=== PATIENT | male | born 1955 | race Caucasian/White ===

== ENCOUNTER → 2018-01-17 07:52 | Outpatient (CLI) | payer BC, SELFPAY ==
[2018-01-17 10:18] LABS: AST(SGOT) 14 U/L (15-37); Alanine Aminotransfer ALT/SGPT 27 U/L (16-61); Albumin, Serum 3.7 g/dL (3.2-5.0); Alkaline Phosphatase 65 U/L (45-117); Cholesterol 203 mg/dL (200); Globulin 3.8 g/dL (2.2-4.2); High Density Lipoprotein 46 mg/dL; Protein, Total 7.5 g/dL (6.4-8.2); Triglycerides 171 mg/dL; Very Low Density Lipoprotein 34 mg/dL (5-40)
== END ==
PROVIDERS: Visit Provider Physician Assistant Medical
DX: E78.5 Hyperlipidemia, unspecified (principal); Z79.899 Other long term (current) drug therapy
CPT/HCPCS: 36415; 80061; 80076

== ENCOUNTER → 2018-08-17 12:59 | Outpatient (CLI) | payer BC, SELFPAY ==
[2018-08-17 13:44] LABS: AST(SGOT) 15 U/L (15-37); Alanine Aminotransfer ALT/SGPT 26 U/L (16-61); Albumin, Serum 3.6 g/dL (3.2-5.0); Alkaline Phosphatase 52 U/L (45-117); Anion Gap 9 (5-15); BUN 15 mg/dL (7-18); BUN/Creat Ratio 14.7 RATIO (10-20); Bilirubin, Direct 0.11 mg/dL (0.00-0.30); Calcium,Total 8.6 mg/dL (8.5-10.1); Chloride 107 mmol/L (98-107); Cholesterol 186 mg/dL (200); Creatinine, Serum 1.02 mg/dL (0.70-1.30); EST Glomerular Filtration Rate 78 mL/min (>60); Est Glom Filt Rate - Afr Amer 94 mL/min (>60); Globulin 3.3 g/dL (2.2-4.2); Glucose 91 mg/dL (74-106); High Density Lipoprotein 48 mg/dL; Potassium 3.5 mmol/L (3.5-5.1); Protein, Total 6.9 g/dL (6.4-8.2); Sodium Level 143 mmol/L (136-145); Triglycerides 192 mg/dL; Very Low Density Lipoprotein 38 mg/dL (5-40)
== END ==
PROVIDERS: Referring Provider Internal Medicine Cardiovascular Disease; Visit Provider Internal Medicine Cardiovascular Disease
DX: I25.10 Atherosclerotic heart disease of native coronary artery without angina pectoris (principal); E78.5 Hyperlipidemia, unspecified; I10 Essential (primary) hypertension; Z95.1 Presence of aortocoronary bypass graft
CPT/HCPCS: 36415; 80048; 80061; 80076

== ENCOUNTER → 2018-11-12 16:28 | Outpatient (CLI) | payer BC, SELFPAY ==
[2018-08-28 15:52] VITALS: BMI 29.5
[2018-11-12 17:38] LABS: PSA,Total - Annual Screen 2.28 ng/mL (0.00-4.00)
== END ==
PROVIDERS: Referring Provider Nurse Practitioner Adult Health; Visit Provider Nurse Practitioner Adult Health
DX: Z12.5 Encounter for screening for malignant neoplasm of prostate (principal)
CPT/HCPCS: 36415; 84153; G0103

== ENCOUNTER → 2019-05-01 07:02 | Outpatient (CLI) | payer BC, SELFPAY ==
[2018-08-28 15:52] VITALS: BMI 29.5
[2019-05-01 10:39] LABS: AST(SGOT) 12 U/L (15-37); Alanine Aminotransfer ALT/SGPT 25 U/L (16-61); Albumin, Serum 3.6 g/dL (3.2-5.0); Alkaline Phosphatase 67 U/L (45-117); Bilirubin, Direct 0.11 mg/dL (0.00-0.30); Cholesterol 181 mg/dL (200); Globulin 3.6 g/dL (2.2-4.2); High Density Lipoprotein 48 mg/dL; Protein, Total 7.2 g/dL (6.4-8.2); Triglycerides 158 mg/dL; Very Low Density Lipoprotein 32 mg/dL (5-40)
== END ==
PROVIDERS: Referring Provider Internal Medicine Cardiovascular Disease; Visit Provider Internal Medicine Cardiovascular Disease
DX: E78.5 Hyperlipidemia, unspecified (principal)
CPT/HCPCS: 36415; 80061; 80076

== ENCOUNTER → 2020-04-09 09:18 | Outpatient (CLI) | payer BC, SELFPAY ==
[2019-05-20 15:29] VITALS: BMI 29.5
[2020-04-09 13:17] LABS: AST(SGOT) 14 U/L (15-37); Alanine Aminotransfer ALT/SGPT 25 U/L (16-61); Albumin, Serum 3.5 g/dL (3.2-5.0); Alkaline Phosphatase 58 U/L (45-117); Bilirubin, Direct 0.09 mg/dL (0.00-0.30); Cholesterol 198 mg/dL (200); Globulin 3.1 g/dL (2.2-4.2); High Density Lipoprotein 40 mg/dL; PSA,Total - Annual Screen 1.48 ng/mL (0.00-4.00); Protein, Total 6.6 g/dL (6.4-8.2); Triglycerides 276 mg/dL; Very Low Density Lipoprotein 55 mg/dL (5-40)
== END ==
PROVIDERS: Internal Medicine Cardiovascular Disease; Referring Provider Nurse Practitioner Adult Health; Visit Provider Nurse Practitioner Adult Health
DX: E78.5 Hyperlipidemia, unspecified (principal); Z12.5 Encounter for screening for malignant neoplasm of prostate
CPT/HCPCS: 36415; 80061; 80076; 84153; G0103

== ENCOUNTER → 2020-07-17 08:56 | Outpatient (CLI) | payer BC, SELFPAY ==
[2020-05-25 09:10] VITALS: BMI 29.5
[2020-07-17 12:44] LABS: AST(SGOT) 13 U/L (15-37); Alanine Aminotransfer ALT/SGPT 22 U/L (16-61); Albumin, Serum 3.8 g/dL (3.2-5.0); Alkaline Phosphatase 65 U/L (45-117); Bilirubin, Direct 0.17 mg/dL (0.00-0.30); Cholesterol 211 mg/dL (200); Globulin 3.9 g/dL (2.2-4.2); High Density Lipoprotein 49 mg/dL; Protein, Total 7.7 g/dL (6.4-8.2); Triglycerides 188 mg/dL; Very Low Density Lipoprotein 38 mg/dL (5-40)
== END ==
PROVIDERS: Referring Provider Internal Medicine Cardiovascular Disease; Visit Provider Internal Medicine Cardiovascular Disease
CPT/HCPCS: 36415; 80061; 80076

== ENCOUNTER → 2021-05-04 11:19 | Outpatient (CLI) | payer MEDICARE, BC, SELFPAY ==
[2020-05-25 09:10] VITALS: BMI 29.5
[2021-05-04 13:08] LABS: AST(SGOT) 16 U/L (15-37); Alanine Aminotransfer ALT/SGPT 28 U/L (16-61); Albumin, Serum 3.8 g/dL (3.2-5.0); Alkaline Phosphatase 59 U/L (45-117); Bilirubin, Direct 0.12 mg/dL (0.00-0.30); Cholesterol 176 mg/dL (200); Globulin 3.7 g/dL (2.2-4.2); High Density Lipoprotein 47 mg/dL; Protein, Total 7.5 g/dL (6.4-8.2); Triglycerides 160 mg/dL; Very Low Density Lipoprotein 32 mg/dL (5-40)
[2021-05-04 13:18] LABS: Anion Gap 6 (5-15); BUN 16 mg/dL (7-18); BUN/Creat Ratio 15.2 RATIO (10-20); Calcium,Total 9.5 mg/dL (8.5-10.1); Chloride 105 mmol/L (98-107); Creatinine, Serum 1.05 mg/dL (0.70-1.30); EST Glomerular Filtration Rate 75 mL/min (>60); Est Glom Filt Rate - Afr Amer 91 mL/min (>60); Glucose 103 mg/dL (74-106); PSA,Total - Annual Screen 1.72 ng/mL (0.00-4.00); Potassium 3.4 mmol/L (3.5-5.1); Sodium Level 141 mmol/L (136-145)
== END ==
PROVIDERS: Internal Medicine Cardiovascular Disease; Visit Provider Nurse Practitioner Adult Health
DX: N20.0 Calculus of kidney (principal); Z12.5 Encounter for screening for malignant neoplasm of prostate; E78.5 Hyperlipidemia, unspecified; I25.10 Atherosclerotic heart disease of native coronary artery without angina pectoris
CPT/HCPCS: 36415; 80048; 80061; 80076; 84153; G0103

== ENCOUNTER → 2022-05-26 | Outpatient (CLI) | payer MEDICARE, BC, SELFPAY ==
[2022-05-26 11:06] LABS: AST(SGOT) 13 U/L (15-37); Alanine Aminotransfer ALT/SGPT 22 U/L (16-61); Albumin, Serum 3.7 g/dL (3.2-5.0); Alkaline Phosphatase 61 U/L (45-117); Bilirubin, Direct 0.18 mg/dL (0.00-0.30); Cholesterol 185 mg/dL (200); Globulin 3.7 g/dL (2.2-4.2); High Density Lipoprotein 49 mg/dL; Protein, Total 7.4 g/dL (6.4-8.2); Triglycerides 171 mg/dL; Very Low Density Lipoprotein 34 mg/dL (5-40)
[2022-05-26 11:08] LABS: PSA,Total - Annual Screen 2.39 ng/mL (0.00-4.00)
== END | disposition home or self-care (01) ==
LOC: BIMLAB 09:44
PROVIDERS: Internal Medicine Cardiovascular Disease; Referring Provider Registered Nurse; Visit Provider Registered Nurse
DX: E78.00 Pure hypercholesterolemia, unspecified (principal); E78.5 Hyperlipidemia, unspecified; Z12.5 Encounter for screening for malignant neoplasm of prostate
CPT/HCPCS: 36415; 80061; 80076; 84153; G0103

== ENCOUNTER → 2023-05-02 | Outpatient (CLI) | payer MEDICARE, BC, SELFPAY ==
[2023-05-02 12:30] LABS: AST(SGOT) 20 U/L (15-37); Alanine Aminotransfer ALT/SGPT 24 U/L (16-61); Albumin, Serum 3.4 g/dL (3.2-5.0); Alkaline Phosphatase 64 U/L (45-117); Bilirubin, Direct 0.08 mg/dL (0.00-0.30); Cholesterol 183 mg/dL (200); Globulin 3.8 g/dL (2.2-4.2); High Density Lipoprotein 51 mg/dL; Protein, Total 7.2 g/dL (6.4-8.2); Triglycerides 242 mg/dL; Very Low Density Lipoprotein 48 mg/dL (5-40)
== END | disposition home or self-care (01) ==
LOC: BIMLAB 10:34
PROVIDERS: Internal Medicine Cardiovascular Disease; Visit Provider Internal Medicine Cardiovascular Disease
DX: E78.00 Pure hypercholesterolemia, unspecified (principal)
CPT/HCPCS: 36415; 80061; 80076

== ENCOUNTER 2023-06-16 10:49 | Emergency (ER) | payer MEDICARE, BC, SELFPAY ==
[2023-06-16 10:50] VITALS: BP 156/93; PULSE 74; RESP 16; TEMP 36.4; O2SAT 98
--- NOTE | 2023-06-16 11:15 | CT_ITS ---
STUDY: CT ABDOMEN AND PELVIS WITHOUT CONTRAST REASON FOR EXAM: Male, 67 years old. Kidney Stone RADIATION DOSAGE (If Supplied By Facility): CTDIvol = ( 15.22 ) mGy, DLP = ( 767.89 ) mGycm TECHNIQUE: Transaxial images were obtained from the dome of the diaphragm to the symphysis pubis without oral contrast, and without intravenous contrast. Sagittal and coronal images were reconstructed. Individualized dose optimization techniques were used for this CT. COMPARISON: None. FINDINGS: Mild increased markings in the right middle lobe suggestive of linear scarring and/or atelectasis. The visualized portions of the heart are within normal limits. 9.2 mm cyst in the medial aspect of the right lobe of the liver. 1.8 cm cyst is also seen in the mid inferior portion of the right lobe of the liver. Normal gallbladder and extrahepatic biliary system. Normal spleen. Normal pancreas. Normal bilateral adrenal glands. Moderate degree of right-sided hydronephrosis and hydroureter due to a 3 mm calculus in the midportion of the right ureter. This evidence of a perinephric stranding. There is also evidence of a 5 mm nonobstructive calculus in the midpole calyx of the right kidney as well as scattered tiny intrarenal calculi. There is a 5 mm nonobstructive calculus in the midpole calyx of the left kidney as well as a 3 mm calculus in the region of the left renal pelvis. Normal visualized stomach. Normal small intestine. There are multiple colonic diverticula consistent with diverticulosis. The appendix is visualized and appears normal. There is scattered atherosclerotic calcification of the abdominal aorta, without a demonstrated aneurysm. Normal inferior vena cava. Normal retroperitoneum. Normal urinary bladder. There are prostatic calcifications. The prostate measures 4 cm x 4.4 cm. Small bilateral areas containing fat. There are mild degenerative changes of the visualized lumbar spine. CT/Abdomen/Pelvis without Cont IMPRESSION: 3 mm calculus in the midportion of the right ureter causing moderate degree right hydronephrosis and hydroureter. Small nonobstructive bilateral intrarenal calculi. Hepatic cysts. Prostatic enlargement with prostatic calcifications. Electronically Signed: Sam Palma MD at 12:17 EDT ,
[2023-06-16 11:30] LABS: Bacteria 0 SEEN /hpf (None Seen); Mucous, Urine 0 SEEN /hpf (<or=2+); Red Blood Cells-Urine 0 SEEN /hpf (0-5); Squamous Epithelial Cells - UA 0 SEEN /hpf (0-5); White Blood Cells 0 SEEN /hpf (0-5)
[2023-06-16] MEDS: Morphine 4 MG/ML Syringe IV ×2 (11:32→12:07)
[2023-06-16] MEDS: Ketorolac 15 MG/ML Vial IV (11:32)
[2023-06-16] MEDS: 0.9% Normal Saline (1000mL) 1,000 ML 250 ML IV (11:32)
[2023-06-16] MEDS: Ondansetron 4 MG/2 ML Vial IV (11:32)
[2023-06-16 11:33] LABS: Absolute Lymphocyte Count 0.75 X10^3/uL (0.83-4.51); Basophil# 0.03 X10^3/uL; Basophil% 0.3 % (0-1); Eosinophil# 0.01 X10^3/uL; Eosinophils% 0.1 % (0-5); Hematocrit 44.6 % (40-54); Hemoglobin 14.9 g/dL (13.0-16.5); Lymphocyte # 0.75 X10^3/ul (0.83-4.51); Lymphocyte % 7.7 % (19-41); Mean Corp Hgb Conc 33.4 g/dL (32-36); Mean Corpuscular Hgb 30.3 pg (27.0-32.0); Mean Corpuscular Volume 90.7 fL (80-94); Mean Platelet Vol. 10.7 fl (6.2-12.0); Monocyte# 0.95 X10^3/uL; Monocyte% 9.7 % (0-10); NRBC Flagged by Analyzer 0 % (0-5); Neutrophil # 7.99 X10^3/uL (2.7-7.7); Platelet Count 163 K/mm3 (150-450); RBC Distribution Width CV 13.7 % (11.6-14.6); RBC Distribution Width SD 45.4 fl (35.1-43.9); Red Blood Count 4.92 M/mm3 (4.6-6.2); White Blood Count 9.8 K/mm3 (4.4-11.0)
[2023-06-16 11:33] LABS: Color, Urine Yellow (Yellow); Glucose, Dipstick Normal (Normal); Ketone-Dipstick Negative (Negative); Leukocyte Esterase-Dipstick Negative /ul (Negative); Nitrite-Dipstick Negative (Negative); Occult Blood-Urine 25 /ul (Negative); Protein-Dipstick Negative (Negative); Specific Gravity, Urine 1.005 (1.002-1.030); Urine Bilirubin Dipstick Negative (Negative); Urine Clarity Clear (Clear); Urine Urobilinogen Normal (Normal)
--- NOTE | 2023-06-16 11:38 | EDS_ITS ---
HPI History of Present Illness Chief Complaint: Flank Pain Informant: patient and spouse/S.O. Narrative Narrative: Patient is a 67-year-old male with extensive history of kidney stones and has required stenting in the past. He is currently on potassium citrate to prevent kidney stones and has followed with Dr. Vinson, urology in the past. He states is been a while since his last kidney stone. He is presenting today right flank pain, nausea and hematuria. States his symptoms started yesterday morning. The pain has been constant but fluctuates in intensity. He initially was seen clots in his urine however has been increasing his fluid intake and this is cleared up. He states this feels like his prior episodes of kidney stands. He has been taking Tylenol with no relief of his symptoms. Denies any other complaints or concerns at this time. No associated numbness or tingling of his legs. Nominal pain. Points to his right lower back as the main area of pain. Denies any dysuria. Is not on any blood thinners. PFSH PFS Medical History Atherosclerotic heart disease of [place] coronary artery without angina pectoris Essential hypertension HLD (hyperlipidemia) Kidney stone Postoperative supraventricular tachycardia Home Medications aspirin 325 mg tablet 325 mg PO DAILY@0800 08/20/15 [History Last Taken Unknown] multivitamin 1 tab PO DAILY 08/20/15 [History Last Taken Unknown] potassium citrate 10 mEq (1,080 mg) tablet,extended release 10 meq PO BID [History Last Taken Unknown] lisinopril 20 mg-hydrochlorothiazide 12.5 mg tablet 1 tab PO BID #180 tabs 05/04/23 [Rx Last Taken Unknown] metoprolol tartrate 25 mg tablet 25 mg PO BID #180 tabs 05/04/23 [Rx Last Taken Unknown] pravastatin 80 mg tablet 80 mg PO DAILY #90 tabs 05/04/23 [Rx Last Taken Unknown] Allergy/AdvReac Type Severity Reaction Status Date / Time Penicillins Allergy Rash Verified 06/16/23 10:50 Family History Father COPD (chronic obstructive pulmonary disease) CAD (coronary artery disease) Mother CAD (coronary artery disease) Hypertension Myocardial infarction Brother CAD (coronary artery disease) COPD (chronic obstructive pulmonary disease) Myocardial infarction Surgical History History of coronary artery bypass surgery (~07/30/12) History of hernia repair History of lithotripsy Social History Smoking Status: Never smoker alcohol intake: never substance use type: does not use caffeine: No ROS ROS ED Constitutional Constitutional ED: Denies chills or fever(s) Cardiovascular Cardiovascular: Denies chest pain Respiratory/Chest Respiratory/Chest: Denies cough Gastrointestinal Gastrointestinal: Reports nausea; Denies abdominal pain, diarrhea or vomiting Genitourinary Genitourinary ED: Reports hematuria; Denies dysuria or urinary frequency Musculoskeletal Musculoskeletal: Reports back pain Integumentary Denies rash Neurologic Neurologic: Denies paresthesias or weakness Psychiatric Psychiatric: Denies anxiety Hematologic/Lymphatic Hematologic/Lymphatic: Denies anemia or easy bleeding EXAM Physical Exam Const Vital Signs: 06/16/23 10:50 06/16/23 13:48 Temperature 97.5 F L Temperature Source Temporal Pulse Rate 74 Respiratory Rate 16 18 Blood Pressure 156/93 H Blood Pressure Mean 114 Pulse Ox 98 Oxygen Delivery Method Room Air Room Air Positive well nourished and well developed General Appearance ED: well developed and NAD HEENT Reports moist mucous membranes Eyes PERRL and EOMs intact bilaterally Neck supple Chest Wall inspection of chest normal Resp normal respiratory effort and clear to auscultation bilaterally Cardio regular rate, regular rhythm and no murmurs GI normal to inspection, nondistended, normoactive bowel sounds, non-tender and non-distended Back/Spine no CVA tenderness Back/Spine Narrative: Points to his right flank as area of pain however I am not able to reproduce it with direct palpation Thoracic Spine / Upper Back: Negative for thoracic spinal tenderness Lumbar Spine / Lower Back: Negative for lumbar spinal tenderness Extremity normal to inspection Neuro oriented x3 Sensorium / Orientation: alert Motor Exam: Negative for general weakness Psych Negative for mental status grossly normal Skin no rashes or lesions noted and no wounds MDM MDM MDM Narrative Medical decision making narrative: Evaluated for right flank pain and hematuria. Physical exam is benign. Vital signs are significant only for mild hypertension. Patient appears nontoxic. His presentation is concerning for obstructive kidney stone. Pyelonephritis, UTI and gross hematuria are also on the differential. We will obtain lab work, urinalysis and CT flank study. Patient is given Toradol, Zofran, morphine and IV fluids in the ER for symptom control. CBC is normal. BMP unfortunate does show an RUDDY with a creatinine of 1.82. His baseline appears to be closer to 0.9. Urinalysis is not consistent with infection. CT of the abdomen pelvis that showed a 3 mm mid you right ureter obstructing kidney stone with associated hydronephrosis. He does require redose of morphine for pain control but then has adequate symptom control at that point. Given his RUDDY in the setting of an obstructing kidney stone I do think he would benefit from admission for IV fluids and urology consult. Unfortunately we do not currently have urology coverage here today or this weekend. Patient would like to go to [facility]. Case is discussed with admitting physician, Dr. Bob. Patient is excepted at [facility]. He will go by private vehicle and will drive him. I believe patient is hemodynamically stable for this. Patient is agreeable with this plan of care. Lab Data Attestation: I reviewed the patient's lab results. Labs: Laboratory Results - last 24 hr 06/16/23 06/16/23 11:00 11:05 WBC 9.8 RBC 4.92 Hgb 14.9 Hct 44.6 MCV 90.7 MCH 30.3 MCHC 33.4 RDW Std Deviation 45.4 H RDW Coeff of [place] 13.7 Plt Count 163 MPV 10.7 Immature Gran % (Auto) 0.200 Neut % (Auto) 82.0 H Lymph % (Auto) 7.7 L [place] % (Auto) 9.7 Eos % (Auto) 0.1 Baso % (Auto) 0.3 Absolute Neuts (auto) 8.0 H Absolute Lymphs (auto) 0.75 L Nucleated RBC % 0 Sodium 137 Potassium 3.4 L Chloride 103 Carbon Dioxide 30.0 Anion Gap 4 L BUN 22 H Creatinine 1.82 H Est GFR (MDRD) Af Amer 48 L Est GFR (MDRD) Non-Af 39 L BUN/Creatinine Ratio 12.1 Glucose 127 H Calcium 9.6 Urine Color Yellow Urine Clarity Clear Urine pH 7.0 Ur Specific [place] 1.005 Urine Protein Negative Urine Glucose (UA) Normal Urine Ketones Negative Urine Occult Blood 25 H Urine Nitrite Negative Urine Bilirubin Negative Urine Urobilinogen Normal Ur Leukocyte Esterase Negative Urine RBC 0 SEEN Urine WBC 0 SEEN Ur Squamous Epith Cells 0 SEEN Urine Bacteria 0 SEEN Urine Mucus 0 SEEN Radiography Diagnostic Testing: Clinical Impression(s) from Imaging Studies Abdomen/Pelvis CT 06/16/23 11:15 IMPRESSION: 3 mm calculus in the midportion of the right ureter causing moderate degree right hydronephrosis and hydroureter. Small nonobstructive bilateral intrarenal calculi. Hepatic cysts. Prostatic enlargement with prostatic calcifications. Electronically Signed: Sam Palma MD at 12:17 EDT , Management Discussion w/another healthcare provider: Hospitalist Discharge Plan Triage Chief Complaint: Flank Pain Other Complaint: Complaint ED Provider: Marely Lang Dx/Rx/DC Orders Clinical Impression: RUDDY (acute kidney injury), Ureterolithiasis, Right flank pain, Hydronephrosis of right kidney Prescriptions: No Action potassium citrate 10 MEQ tablet extended release 10 meq PO BID Patient Comments: supplement multivitamin 1 EACH tablet 1 tab PO DAILY Patient Comments: supplement aspirin 325 MG tablet 325 mg PO DAILY@0800 Patient Comments: heart health lisinopril-hydrochlorothiazide 20-12.5 mg tablet 1 tab PO BID Qty: 180 3RF metoprolol tartrate 25 mg tablet 25 mg PO BID Qty: 180 3RF pravastatin 80 mg tablet 80 mg PO DAILY Qty: 90 4RF Primary Care Provider: Bill Montes Referrals: Bill Montes MD [Primary Care Provider] - Disposition Disposition: Acute Care Hospital Discharge Location: [facility] Discharge Date/Time: 06/16/23 14:48
[2023-06-16 11:47] LABS: Anion Gap 4 (5-15); BUN 22 mg/dL (7-18); BUN/Creat Ratio 12.1 RATIO (10-20); Calcium,Total 9.6 mg/dL (8.5-10.1); Chloride 103 mmol/L (98-107); Creatinine, Serum 1.82 mg/dL (0.70-1.30); EST Glomerular Filtration Rate 39 mL/min (>60); Est Glom Filt Rate - Afr Amer 48 mL/min (>60); Glucose 127 mg/dL (74-106); Potassium 3.4 mmol/L (3.5-5.1); Sodium Level 137 mmol/L (136-145)
[2023-06-16 13:48] VITALS: RESP 18
== END 2023-06-16 14:48 | disposition short-term general hospital (02) ==
LOC: ED 11:47
PROVIDERS: Emergency Provider Emergency Medicine; PCP Urology; Visit Provider Emergency Medicine
DX: N17.9 Acute kidney failure, unspecified (principal); I10 Essential (primary) hypertension; E78.5 Hyperlipidemia, unspecified; I25.10 Atherosclerotic heart disease of native coronary artery without angina pectoris; N13.2 Hydronephrosis with renal and ureteral calculous obstruction; R10.9 Unspecified abdominal pain; Z79.82 Long term (current) use of aspirin; Z79.899 Other long term (current) drug therapy
CPT/HCPCS: 74176; 80048; 81001; 85025; 96361; 96374; 96375; 96376; 99284; J7030; A4216; J2405

== ENCOUNTER → 2023-10-06 | Outpatient (CLI) | payer MEDICARE, BC, SELFPAY ==
--- NOTE | 2023-10-06 06:41 | ECHOCS_ITS ---
Reason For Study: CAD/ASHD, SVT Procedure This was a 2D Doppler, Color Flow transthoracic echocardiogram. Contrast injection was performed. Exam performed in department. Left Ventricle Normal LV size. Left ventricular systolic function is normal. The estimated ejection fraction is 60 %. Stage 1 diastolic dysfunction. No regional wall motion abnormalities noted. Right Ventricle Normal RV size. Normal systolic function. Atria Normal left atrium. Normal right atrium. Mitral Valve Normal mitral valve. Tricuspid Valve Normal tricuspid valve. Mild tricuspid valve insufficiency. Pulmonary artery systolic pressure is 31 mmHg. Aortic Valve Trisinus/trileaflet aortic valve. Pulmonic Valve Normal pulmonic valve. Great Vessels Normal aortic root. The pulmonary artery is normal size. Inferior vena cava collapse with respiration. Pericardium/Pleural No pericardial effusion. Medication 22 gauge I.V. with prn adaptor inserted into left arm. Diluted definity 1.5ml given slow IV push to enhance endocardial definition. MMode/2D Measurements & Calculations LVIDd: 5.8 cm IVSd: 0.89 cm Ao root diam: 3.8 cm LVIDs: 3.7 cm LVPWd: 0.97 cm LA dimension: 4.3 cm RVDd: 3.6 cm FS: 35.4 % LAV(MOD-bp): 60.4 ml LVAd ap4: 36.2 cm2 SV(MOD-sp4): 76.2 ml LAV(MOD-bp) Indexed: 29.0 ml/m2 LVLd ap4: 8.6 cm LAV(MOD-sp2): 52.4 ml EDV(MOD-sp4): 122.5 ml LAV(MOD-sp4): 57.8 ml EDV(sp4-el): 129.6 ml LVAs ap4: 19.4 cm2 LVLs ap4: 6.8 cm ESV(MOD-sp4): 46.3 ml ESV(sp4-el): 47.2 ml EF(MOD-sp4): 62.2 % EF(sp4-el): 63.6 % SV(sp4-el): 82.5 ml LA A4 area: 20.5 cm2 RA A4 area: 16.9 cm2 TAPSE: 1.2 cm Time Measurements MV dec time: 0.27 sec Doppler Measurements & Calculations MV E max carlos: 55.5 cm/sec Lat Peak E' Carlos: 10.2 cm/sec Med Peak E' Carlos: 7.2 cm/sec MV A max carlos: 58.5 cm/sec E/E' lat: 5.5 E/E' med: 7.7 MV E/A: 0.95 MV V2 max: 66.8 cm/sec MV P1/2t max carlos: 51.0 cm/sec Ao V2 max: 143.6 cm/sec MV max P.8 mmHg MV P1/2t: 95.3 msec Ao max P.2 mmHg MV V2 mean: 36.3 cm/sec Ao V2 mean: 101.5 cm/sec MV mean P.61 mmHg MV dec slope: 156.8 cm/sec2 Ao mean P.6 mmHg MV V2 VTI: 19.8 cm MVA(P1/2t): 2.3 cm2 Ao V2 VTI: 27.4 cm AV (velocity ratio): 0.92 LV V1 max: 133.9 cm/sec MR max carlos: 511.9 cm/sec PA V2 max: 150.9 cm/sec LV V1 max P.2 mmHg MR max P.8 mmHg PA V2 mean: 94.5 cm/sec LV V1 mean P.9 mmHg LV V1 mean: 93.4 cm/sec LV V1 VTI: 25.2 cm TR max carlos: 263.8 cm/sec TR max P.8 mmHg ECHO/Echo Complete W/ Contrast Interpretation Summary Normal LV size. Left ventricular systolic function is normal. The estimated ejection fraction is 60 %. Stage 1 diastolic dysfunction. Contrast injection was performed. Ordering Physician: Biju Padron Referring Physician: Biju Padron Performed By: Gerardo Parisi RCS
--- OUTSIDE RECORDS SUMMARY | 2023-10-06 06:41 | XMS RPT_ITS | CCD ---
Author Name Unknown Address [address] [place] [address] Organization [facility] Care Team Providers Care Industrial Production Manager Name Role Phone Loki Bettencourt Unavailable [phone] Free, Text Entry Unavailable Unavailable Orlando Trevino Unavailable Israel Jacobs Unavailable Unavailable Pending Provider Unavailable Unavailable Unavailable Unavailable Unavailable Primary Care Provider UnavailDr. Israel Villafuerte Attending UnavailDr. Bill Cabrera Referring Un available Dr. Bill Bob Admitting Un available Pending, Provider Primary Care Unavailable Orlando Trevino Attending Unavailable Pending, Provider Primary Care Unavailable Pending, Provider Primary Care Unavailable Orlando Trevino Referring Unavailable Orlando Trevino Attending Unavailable Allergies Allergy Classification Reported Allergen(s) Allergy Type Date of Onset Reaction(s) Facility (2 sources) penicillin Drug Allergy 07-30-2012 Rash, Hives [facility] Work Phone: Medications Current Medications Medication Drug Class(es) Dates Sig (Normalized) Sig (Original) acetaminophen 325 mg / HYDROcodone bitartrate 5 mg oral tablet (2 sources) Opioid Agonist Start: 07-04-2023 take 1 tablet by mouth every six hours for pain HYDROcodone-aceta minophen (Jay) 5-325 mg tablet Indications: Ureteral stone Take 1 tablet by mouth every 6 hours if needed for severe pain (7 - 10). 20 tablet 0 07/04/2023 Active Completed/Discontinued Medications Medication Drug Class(es) Dates Sig (Normalized) Sig (Original) acetaminophen 325 mg oral tablet (1 source) Start: 07-04-2023 End: 07-04-2023 acetaminophen (Tylenol) tablet 975 mg Problems Active Problems Problem Classification Problem Date Documented Date Episodic/Chronic Allergic reactions (1 source) Allergy status to penicillin; Translations: [Allergy status to penicillin] Onset: 06-18-2023 Episodic Calculus of urinary tract (12 sources) Ureteric stone; Translations: [Calculus of ureter] Onset: 06-28-2023 06-16-2023 Episodic Cardiac dysrhythmias (1 source) Paroxysmal supraventricular tachycardia; Translations: [Supraventricular tachycardia] Onset: 10-11-2012 10-11-2012 Chronic Complication of device; implant or graft (3 sources) Atherosclerosis of coronary artery bypass graft(s) without angina pectoris; Translations: [Arteriosclerosis of coronary artery bypass graft] Onset: 07-30-2012 09-09-2016 Chronic Coronary atherosclerosis and other heart disease (4 sources) Coronary arteriosclerosis; Translations: [Angina pectoris] Onset: 07-30-2012 07-30-2012 Chronic Coronary atherosclerosis and other heart disease (1 source) Presence of aortocoronary bypass graft; Translations: [Presence of aortocoronary bypass graft] Onset: 06-18-2023 Episodic Disorders of lipid metabolism (2 sources) Hyperlipidemia; Translations: [Hyperlipidemia, unspecified] Onset: 07-30-2012 07-30-2012 Chronic Essential hypertension (4 sources) Hypertensive disorder; Translations: [Essential (primary) hypertension] Onset: 08-15-2012 08-15-2012 Chronic Fluid and electrolyte disorders (1 source) Hypokalemia; Translations: [Hypokalemia] Onset: 06-18-2023 Episodic Genitourinary symptoms and ill-defined conditions (1 source) Nocturia; Translations: [Nocturia] Episodic Hyperplasia of prostate (1 source) Benign prostatic hypertrophy without outflow obstruction; Translations: [Hypertrophy (benign) of prostate without urinary obstruction and other lower urinary tract symptom (LUTS)] Chronic Other aftercare (1 source) [facility] (current) use of aspirin; Translations: [[facility] (current) use of aspirin] Onset: 06-18-2023 Episodic Other diseases of kidney and ureters (3 sources) Hydronephrosis with renal and ureteral calculous obstruction; Translations: [Hydronephrosis with renal and ureteral calculous obstruction] Onset: 06-16-2023 Episodic Unclassified (2 sources) Body mass index (BMI) 30.0-30.9, adult; Translations: [Body mass index (BMI) 31.0-31.9, adult] Onset: 08-11-2014 08-11-2014 Chronic Unclassified (4 sources) Long-term drug therapy; Translations: [Other law firm consultant (current) drug therapy] Onset: 10-11-2012 Resolved: 08-17-2015 10-11-2012 Unclassified (1 source) Coronary artery bypass graft; Translations: [Presence of coronary angioplasty implant and graft] Onset: 07-30-2012 07-30-2012 Unclassified (2 sources) Primary hypertension 06-16-2023 Unclassified (2 sources) KIDNEY STONES 06-16-2023 Past or Other Problems Problem Classification Problem Date Documented Da te Episodic/Chronic Other upper respiratory infections (1 source) Acute sinusitis; Translations: [Acute sinusitis, unspecified] Onset: 08-30-2017 08-30-2017 Episodic Unclassified (1 source) FH: Hypertension; Translations: [Family history of ischemic heart disease and other diseases of the circulatory system] 08-11-2014 Episodic Results Test Name Value Interpretation Reference Range Facil ity Vital Signs Date Time Vital Sign Value Performing Clinician Facility 07-04-2023 13:22-0400 Diastolic blood pressure 89 mm[Hg] Orlando Trevino MD Work Phone: [facility] 07-04-2023 13:22-0400 Heart rate 76 /min Orlando Trevino MD Work Phone: [facility] 07-04-2023 13:22-0400 Respiratory rate 16 /min Orlando Trevino MD Work Phone: [facility] 07-04-2023 13:22-0400 Systolic blood pressure 140 mm[Hg] Orlando Trevino MD Work Phone: [facility] 07-04-2023 12:52-0400 Body temperature 97.2 [degF] Orlando Trevino MD Work Phone: [facility] 07-04-2023 12:52-0400 SaO2% (BldA) [Mass fraction] 95 % Orlando Trevino MD Work Phone: [facility] 07-04-2023 09:46-0400 Body height 175.3 cm Orlando Trevino MD Work Phone: [facility] 07-04-2023 09:46-0400 Body mass index (BMI) [Ratio] 30.96 kg/m2 Orlando Trevino MD Work Phone: [facility] 07-04-2023 09:46-0400 Body weight 95.1 kg Orlando Trevino MD Work Phone: [facility] 06-28-2023 14:07-0400 Body height 172.72 cm Orlando Trevino II, MD Work Phone: [facility] Work Phone: 06-28-2023 14:07-0400 Body mass index (BMI) [Ratio] 31.63 kg/m2 Orlando Trevino II, MD Work Phone: [facility] Work Phone: 06-28-2023 14:07-0400 Body surface area Derived from formula 2.08 m2 Orlando Trevino II, MD Work Phone: [facility] Work Phone: 06-28-2023 14:07-0400 Body weight 94.35 kg Orlando Trevino II, MD Work Phone: [facility] Work Phone: 06-28-2023 14:07-0400 Respiratory rate 16 /min Orlando Trevino II, MD Work Phone: [facility] Work Phone: 06-18-2023 18:04-0400 Diastolic blood pressure 75 mm[Hg] Text Entry [facility] 06-18-2023 18:04-0400 Heart rate 69 /min Text Entry [facility] 06-18-2023 18:04-0400 SaO2% (BldA) [Mass fraction] 96 % Text Entry [facility] 06-18-2023 18:04-0400 Systolic blood pressure 166 mm[Hg] Text Entry [facility] 06-18-2023 16:34-0400 Body temperature 98.6 [degF] Text Entry [facility] 06-18-2023 16:34-0400 Respiratory rate 20 /min Text Entry [facility] 08-30-2017 16:08-0500 BMI (Body Mass Index) 32.63 kg/m2 Loki [facility] Work Phone: 08-30-2017 16:08-0500 Body Temperature 98.2 [degF] Lokilance [facility] Work Phone: 08-30-2017 16:08-0500 BP Diastolic 80 mm[Hg] Loki Kylee [facility] Work Phone: 08-30-2017 16:08-0500 BP Systolic 126 mm[Hg] Loki Kylee [facility] Work Phone: 08-30-2017 16:08-0500 Height 173.99 cm Loki [facility] Work Phone: 08-30-2017 16:08-0500 Pulse (Heart Rate) 78 /min oLki [facility] Work Phone: 08-30-2017 16:08-0500 Respiratory Rate 14 /min Loki Kylee [facility] Work Phone: 08-30-2017 16:08-0500 Weight 98.79 kg Loki Kylee [facility] Work Phone: 03-14-2016 16:20-0400 BSA (Body Surface Area) 1.99 m2 Loki Kylee [facility] Work Phone: Encounters Encounter Date Encounter Type Care Provider Facility Start: 07-04-2023 End: 07-04-2023 Subsequent hospital visit by physician Orlando Trevino MD Work Phone: [facility] [place] Procedures Date Procedure Procedure Detail Performing Clinician Start: 07-04-2023 PULSE OXIMETRY, CONTINUOUS Juan Saunders DO Work Phone: Start: 03-06-2017 End: 04-05-2017 *Hepatic Function Panel Jhon Rock MD Start: 03-06-2017 End: 03-06-2017 Follow Up Appt 1 year Jhon De Leon Start: 03-06-2017 End: 04-05-2017 Lipid 1996 panel - Serum or Plasma Jhon Rcok MD Start: 03-06-2017 End: 03-06-2017 PFM Jhon Rock MD Start: 03-14-2016 End: 03-15-2016 Follow Up Appt 6 months Jhon Rock MD Start: 03-14-2016 End: 03-15-2016 MMM Jhon Rock MD Start: 02-15-2016 End: 04-05-2017 *Hepatic Function Panel Jhon Rock MD Start: 02-15-2016 End: 04-05-2017 Lipid 1996 panel - Serum or Plasma Jhon Rock MD Start: 08-02-2015 End: 08-17-2015 Lipid 1996 panel - Serum or Plasma Jhon Rock MD Start: 02-25-2015 End: 02-26-2015 Documentation of current medications Alanna Coleman PA-C Work Phone: Start: 02-25-2015 End: 02-25-2015 Follow Up Appt 6 months Alanna asher PA-C Work Phone: Start: 02-25-2015 End: 02-25-2015 PFM Alanna Coleman PA-C Work Phone: Start: 01-30-2015 End: 02-16-2015 *Hepatic Function Panel Jhon Rock MD Start: 01-30-2015 End: 02-16-2015 Lipid 1996 panel - Serum or Plasma Jhon Rock MD Start: 08-11-2014 End: 02-16-2015 *Hepatic Function Panel Jhon Rock MD Start: 08-11-2014 End: 08-11-2014 Follow Up Appt 6 months Jhon Rock MD Start: 08-11-2014 End: 02-16-2015 Lipid 1996 panel - Serum or Plasma Jhon Rock MD Start: 08-11-2014 End: 08-11-2014 MMM Jhon Rock MD Start: 07-02-2014 End: 08-06-2014 *Hepatic Function Panel Jhon Rock MD Start: 07-02-2014 End: 08-06-2014 Lipid 1996 panel - Serum or Plasma Jhon Rock MD Start: 02-10-2014 End: 02-10-2014 Ecg routine ecg w/least 12 lds w/i&r Alanna Coleman PA-C Work Phone: Start: 02-10-2014 End: 02-10-2014 Follow Up Appt 6 months Alanna asher PA-C Work Phone: Start: 02-10-2014 End: 02-10-2014 PFM Alanna Coleman PA-C Work Phone: Start: 10-02-2013 End: 01-29-2014 *Hepatic Function Panel Jhon Rock MD Start: 10-02-2013 End: 01-29-2014 Lipid 1996 panel - Serum or Plasma Jhon Rock MD Start: 08-12-2013 End: 08-12-2013 Follow Up Appt 6 months Jhon Rock MD Start: 08-12-2013 End: 08-12-2013 JENNYFER Rock MD Start: 04-18-2013 End: 04-18-2013 Follow Up Appt Other Alanna lucio PA-C Work Phone: Start: 02-07-2013 End: 02-07-2013 Follow Up Appt Other Alanna Sanderson Andres lucio PA-C Work Phone: Start: 01-17-2013 End: 02-07-2013 *Hepatic Function Panel Jhon Rock MD Start: 01-17-2013 End: 01-17-2013 Follow Up Appt 3 months Jhon Rock MD Start: 01-17-2013 End: 01-17-2013 Follow up Appt 3 weeks Jhon Rock MD Start: 01-17-2013 End: 01-17-2013 Follow Up Appt 6 months Jhon Rock MD Start: 01-17-2013 End: 02-07-2013 Lipid 1996 panel - Serum or Plasma Jhon Rock MD Start: 01-17-2013 End: 01-17-2013 MMM Jhon Rock MD Start: 01-17-2013 End: 01-17-2013 PFM Jhon Rock MD Start: 10-12-2012 End: 01-17-2013 *Hepatic Function Panel Jhon Rock MD Start: 10-12-2012 End: 10-12-2012 Ecg routine ecg w/least 12 lds w/i&r Jhon Rock MD Start: 10-12-2012 End: 10-12-2012 Follow Up Appt 3 months Jhon Rock MD Start: 10-12-2012 End: 01-17-2013 Lipid 1996 panel - Serum or Plasma Jhon Rock MD Coronary artery bypa ss graft Orlando Trevino II, MD Work Phone: Plan of Treatment Date Care Activity Detail Author Start: 07-04-2023 End: 07-04-2023 Cystoscopy with Lithotripsy Laser Cystoscopy with Lithotripsy Laser UNSPECIFIED HYDRONEPHROSIS, CALCULUS OF URETER 07/04/2023 11:36 AM EDT [facility] Work Phone: Start: 07-04-2023 End: 07-04-2023 Lithotripsy xtrcorp shock wave Lithotripsy Extracorporeal Shock Wave UNSPECIFIED HYDRONEPHROSIS, CALCULUS OF URETER 07/04/2023 11:36 AM EDT [facility] [place] Start: 06-18-2023 End: 06-18-2024 [facility] Immunizations Immunization Date Immunization Notes Care Provider Fa cility 06-17-2023 influenza, high dose seasonal, preservative-free Text Entry Free [facility] Payers Date Payer Category Payer Medicare MEDICARE MEDICAR E PART A AND B [id number] 2021-Present [address] [place] [address] [id number] 2021 Unknown 2021 Unknown [id number] 2021 Medicare [id number] 1955 Unknown [id number] 1955 Unknown [id number] 1955 Unknown [id number] Social History Date Type Detail Facility [facility] Tobacco smoking consumption unknown [facility] Start: 07-04-2023 Never a smoker Never a smoker [facility] Work Phone: Start: 07-04-2023 Tobacco smoking status NHIS Never smoked tobacco [facility] Work Phone: Start: 07-04-2023 Tobacco use and exposure Smokeless tobacco non-user [facility] Work Phone: Start: 07-04-2023 Alcohol intake Lifetime non-drinker (finding) [facility] Work Phone: Start: 07-04-2023 Tobacco use panel [facility] Work Phone: Start: 1955 Sex Assigned At Not on file [facility] Work Phone: Start: 07-04-2023 Gender identity Identifies as male gender (finding) [facility] Work Phone: Start: 07-04-2023 Sexual orientation Heterosexual (finding) [facility] Work Phone: Functional Status Date Assessment Result Facility Functional observable [facility] Mental Status Date Assessment Result Facility 06-18-2023 Cognitive functi ons [id number] [facility] Note 07-04-2023 Op Note - Orlando Trevino MD - 07/04/2023 12:02 PM EDT Note Date & Type Note Facility 07-04-2023 Miscellaneous Notes R ESWL (R), CYSTO R RPG R URETER R STENT REMOVAL (R) Operative Note Date: 07/04/2023 OR Location: [facility] OR Name: Real Gambino, : 1955, Age: 67 y.o., , Sex: male Diagnosis N20.1 * No Diagnosis Codes entered * Procedures CYSTO R RPG R URETER R STENT REMOVAL R ESWL [id number] - [place] LITHOTRIPSY XTRCORP SHOCK WAVE Surgeons * Orlando Trevino - Primary Resident/Fellow/Other Computer Numeric Control Setter: No surgical staff documented. Procedure Summary Anesthesia: General ASA: III Anesthesia Staff: Anesthesiologist: Juan Saunders DO Estimated Blood Loss: 0mL Intra-op Medications: * No intraprocedure medications in log * Anesthesia Record Intraprocedure I/O Totals None Specimen: No specimens collected Staff: Tool Turret Lathe Set Up Operator: Court Reyes RN Scrub Person: Anya Barbosa RN; Quoc Bond Indications: Real Gambino is an 67 y.o. male who is having surgery for UNSPECIFIED HYDRONEPHROSIS, CALCULUS OF URETER. The patient was seen in the preoperative area. The risks, benefits, complications, treatment options, non-operative alternatives, expected recovery and outcomes were discussed with the patient. The possibilities of reaction to medication, pulmonary aspiration, injury to surrounding structures, bleeding, recurrent infection, the need for additional procedures, failure to diagnose a condition, and creating a complication requiring transfusion or operation were discussed with the patient. The patient concurred with the proposed plan, giving informed consent. The site of surgery was properly noted/marked if necessary per policy. The patient has been actively warmed in preoperative area. Preoperative diagnosis: Right ureteral stone Postoperative diagnosis: The same Physician: Uriel Procedure: Cystoscopy with right RPG, right ureteroscopy with holmium and stent removal, RIGHT ESWL ESTIMATED BLOOD LOSS: Minimal. COMPLICATIONS: None. INDICATIONS AND CONSENT: After the risks, benefits, alternatives and indications of this procedure were explained to the patient consented. PROCEDURE: The patient was brought to the operating room, placed on the table in supine position. After adequate anesthesia was obtained, the patient was prepped and draped in the standard surgical fashion. First, a 21 Yakut cystoscope was inserted into the bladder, and formal cystoscopy was performed. The previous placed stent was grasped and brought out.A guidewire was placed up the ureter into the renal pelvis using fluoroscopic guidance .A right retrograde pyelogram suggested a filling defect in the ureter. The ureteroscope was taken up to the level of the stone. The stone was visualized and Holmium laser was used to break up the stone. After removing all of the stone pieces, we then shot a retrograde pyelogram which did not show any obvious filling defects or additional stones in the ureter. Right ESWL was performed, 1500 shocks delivered The patient tolerated the procedure well and there were no complications. Attending Attestation: I was present and scrubbed for the entire procedure. Orlando Trevino documented in this encounter [facility] Work Phone: Clinical Note 07-04-2023 Op Note - Orlando Trevino MD - 07/04/2023 12:02 PM EDT Note Date & Type Note Facility 07-04-2023 Note Formatting of this n ote is different from the original. R ESWL (R), CYSTO R RPG R URETER R STENT REMOVAL (R) Operative Note Date: 07/04/2023 OR Location: [facility] OR Name: Real Gambino, : 1955, Age: 67 y.o., , Sex: male Diagnosis N20.1 * No Diagnosis Codes entered * Procedures CYSTO R RPG R URETER R STENT REMOVAL R ESWL [id number] - [place] LITHOTRIPSY XTRCORP SHOCK WAVE Surgeons * Orlando Trevino - Primary Resident/Fellow/Other Computer Numeric Control Setter: No surgical staff documented. Procedure Summary Anesthesia: General ASA: III Anesthesia Staff: Anesthesiologist: Juan Saunders DO Estimated Blood Loss: 0mL Intra-op Medications: * No intraprocedure medications in log * Anesthesia Record Intraprocedure I/O Totals None Specimen: No specimens collected Staff: Tool Turret Lathe Set Up Operator: Court Reyes RN Scrub Person: Anya Barbosa RN; Quoc Bond Indications: Real Gambino is an 67 y.o. male who is having surgery for UNSPECIFIED HYDRONEPHROSIS, CALCULUS OF URETER. The patient was seen in the preoperative area. The risks, benefits, complications, treatment options, non-operative alternatives, expected recovery and outcomes were discussed with the patient. The possibilities of reaction to medication, pulmonary aspiration, injury to surrounding structures, bleeding, recurrent infection, the need for additional procedures, failure to diagnose a condition, and creating a complication requiring transfusion or operation were discussed with the patient. The patient concurred with the proposed plan, giving informed consent. The site of surgery was properly noted/marked if necessary per policy. The patient has been actively warmed in preoperative area. Preoperative diagnosis: Right ureteral stone Postoperative diagnosis: The same Physician: Uriel Procedure: Cystoscopy with right RPG, right ureteroscopy with holmium and stent removal, RIGHT ESWL ESTIMATED BLOOD LOSS: Minimal. COMPLICATIONS: None. INDICATIONS AND CONSENT: After the risks, benefits, alternatives and indications of this procedure were explained to the patient consented. PROCEDURE: The patient was brought to the operating room, placed on the table in supine position. After adequate anesthesia was obtained, the patient was prepped and draped in the standard surgical fashion. First, a 21 Y[place]ut cystoscope was inserted into the bladder, and formal cystoscopy was performed. The previous placed stent was grasped and brought out.A guidewire was placed up the ureter into the renal pelvis using fluoroscopic guidance .A right retrograde pyelogram suggested a filling defect in the ureter. The ureteroscope was taken up to the level of the stone. The stone was visualized and Holmium laser was used to break up the stone. After removing all of the stone pieces, we then shot a retrograde pyelogram which did not show any obvious filling defects or additional stones in the ureter. Right ESWL was performed, 1500 shocks delivered The patient tolerated the procedure well and there were no complications. Attending Attestation: I was present and scrubbed for the entire procedure. Orlando Trevino [facility] Work Phone: History and physical note 07-04-2023 Orlando Trevino MD - 07/04/2023 9:21 AM EDT Note Date & Type Note Facility 07-04-2023 History and physical note History Of Present Illness Real Gambino is a 67 y.o. male presenting with right ureteral stone. Past Medical History He has no past medical history on file. Surgical History He has no past surgical history on file. Social History He has no history on file for tobacco use, alcohol use, and drug use. Family History No family history on file. Allergies Patient has no known allergies. Review of Systems Constitutional: Negative for chills, fatigue and fever. HENT: Negative for congestion and tinnitus. Eyes: Positive for photophobia. Respiratory: Negative for cough, shortness of breath and wheezing. Gastrointestinal: Negative for abdominal pain, constipation, diarrhea and nausea. Endocrine: Negative for cold intolerance. Genitourinary: Positive for flank pain and hematuria. Musculoskeletal: Negative for arthralgias, back pain and gait problem. Skin: Negative for color change. Neurological: Negative for dizziness. Psychiatric/Behavioral: Negative for agitation. The patient is not nervous/anxious. All other systems reviewed and are negative. Physical Exam Vitals and nursing note reviewed. Constitutional: General: He is not in acute distress. Appearance: Normal appearance. Pulmonary: Effort: Pulmonary effort is normal. Abdominal: Tenderness: There is no abdominal tenderness. Genitourinary: Comments: Kidneys non palpable bilaterally Bladder non palpable or tender Scrotum no mass, No hydrocele Epididymis- No spermatocele. Non Tender. Testicles: No mass Urethra: No discharge Penis within normal limites... No lesions Prostate - Asymmetric, no nodules Seminal Vesicals No mass. Sphincter tone: normal Neurological: Mental Status: He is alert. Orlando Trevino MD [facility] Work Phone: History and physical note 07-04-2023 Orlando Trevino MD - 07/04/2023 9:21 AM EDT Note Date & Type Note Facility 07-04-2023 History and physical note History Of Present Illness Real Gambino is a 67 y.o. male presenting with right ureteral stone. Past Medical History He has no past medical history on file. Surgical History He has no past surgical history on file. Social History He has no history on file for tobacco use, alcohol use, and drug use. Family History No family history on file. Allergies Patient has no known allergies. Review of Systems Constitutional: Negative for chills, fatigue and fever. HENT: Negative for congestion and tinnitus. Eyes: Positive for photophobia. Respiratory: Negative for cough, shortness of breath and wheezing. Gastrointestinal: Negative for abdominal pain, constipation, diarrhea and nausea. Endocrine: Negative for cold intolerance. Genitourinary: Positive for flank pain and hematuria. Musculoskeletal: Negative for arthralgias, back pain and gait problem. Skin: Negative for color change. Neurological: Negative for dizziness. Psychiatric/Behavioral: Negative for agitation. The patient is not nervous/anxious. All other systems reviewed and are negative. Physical Exam Vitals and nursing note reviewed. Constitutional: General: He is not in acute distress. Appearance: Normal appearance. Pulmonary: Effort: Pulmonary effort is normal. Abdominal: Tenderness: There is no abdominal tenderness. Genitourinary: Comments: Kidneys non palpable bilaterally Bladder non palpable or tender Scrotum no mass, No hydrocele Epididymis- No spermatocele. Non Tender. Testicles: No mass Urethra: No discharge Penis within normal limites... No lesions Prostate - Asymmetric, no nodules Seminal Vesicals No mass. Sphincter tone: normal Neurological: Mental Status: He is alert. Orlando Trevino MD documented in this encounter [facility] [facility] Work Phone: Discharge summary note 06-18-2023 Note Date & Type Note Facility 06-18-2023 Note Send Summary: Discharge Summary Providers: Provider RoleProvider Name Bill James, Bill Scanlon, Orlando Lozada, Sarah PrimaryFrrosamaria, Text Entry Note Recipients: none Discharge: Summary: Admission Date: .16-Jun-2023 15:45:00 Discharge Date: 18-Jun-2023 Attending Physician at Discharge: Dr. Jacobs Admission Reason: rt flank pain Final Discharge Diagnoses: Right ureteral stone Procedures: Date: 18-Jun-2023 14:07:00 Procedure Name: 1. Cystoscopy w/Retrogrades, right stent placement Condition at Discharge: fair Disposition at Discharge: home Vital Signs: T PRBPMAPSpO2 [id number]% Date/Time06/18 14: 14: 14: 14: 14: 14:34 Range(36.6C - 37.1C ) (69 - 83 ) (16 - 20 ) (132 - 166 )/ (66 - 89 ) (89 - 105 ) (94% - 96% ) Highest temp of 37.1 C was recorded at 06/18 7:13 Date: Weight/Scale Type:Height: 16-Jun-2023 16:5895.6 kg / gql496.2 cm Physical Exam: General Appearance: AAO x 3, not in acute distress Skin: skin pink, warm, and dry; no suspicious rashes or lesions Eyes : PERRL, EOM's intact ENT: Mucous membranes pink and moist Neck: normocephalic Respiratory: lungs clear to auscultation posteriorly; no wheezing, rhonchi, or crackles. On room air Heart: Regular rate and rhythm without murmur Abdomen: Nondistended, positive bowel sounds x4, soft, tenderness with palpation to right side Extremities: no edema to lower extremities Peripheral pulses: normal x4 extremities Neuro: alert, coherent and conversant, no focal motor deficits Hospital Course: REAL GAMBINO is a 67 year old Male with a past medical history of kidney stones, coronary artery disease status post CABG, post CABG PSVT, hyperlipidemia, and hypertension presented to [facility] as a direct admission from [facility] with complaints of right flank pain. Vital signs upon presentation were temp 98.8, heart rate 79, respiratory rate 18, blood pressure 161/101, and oxygen saturation 95% on room air. Labs done at [facility] were grossly within normal limits except for glucose 127, BUN 22, creatinine 1.82, and potassium 3.4. CT of the abdomen and pelvis without contrast was also done in [place] and showed 3 mm calculus in the midportion of the right ureter causing moderate degree of right hydronephrosis. Small nonobstructive bilateral intrarenal calculi, hepatic cyst, and prostatic enlargement with prostatic calcifications. Patient admitted to [place] surgical floor with a working diagnosis of right flank pain and right ureteral stone. Upon presentation, patient resting quietly in bed with no acute distress. is present at bedside and assist with history. states that right-sided flank pain radiating into pelvic area started early morning and continued to increase throughout the day. Patient complained of nausea without vomiting. Patient denies frequency or dysuria but did notice hematuria with tiny clots. Patient increase fluid intake throughout the day and noticed a decrease in the hematuria. Patient currently complains of right flank pain radiating into right groin area and rates an 8 out of 10. Describes pain as burning and constant. States does have relief with pain medication. Currently complaining of nausea. states that patient follows with urology in [place] and they were unavailable until next week. Patient and states they were instructed to come to [facility] for symptom management. Patient was started on IV fluids. Spoke with urology who recommended straining urine for possible stone passing. Patient was unable to pass stone by self. Patient was taken to OR by urology for cystoscopy and right stent placement. Patient tolerated well. Patient in fair condition to discharge home. Resume home meds. E scribed to drug [facility] in [place] Cipro 500 mg every 12 hours x3 days and Pyridium 200 mg 3 times a day x3 days. Written prescription given for Vicodin 01/2025 mg every 6 hours as needed for pain. Patient to follow-up with Dr. Trevino in 1 to 2 weeks. Patient to follow with PCP as needed Immunizations: Immunizations: 17-Jun-2023 .Influenza- Influenza Virus: Immunizations, 17-Jun-2023 Discharge Information: and Continuing Care: Lab Results - Pending: None Radiology Results - Pending: None Discharge Instructions: Activity: activity as tolerated. May shower.. Nutrition/Diet: special diet Special Diet: cardiac Diet Consistency/Texture: regular / thin Additional Orders: Additional Instructions: Discharge: Discharge home Resume home meds E scribed to discount [facility] Cipro 500 mg every 12 hours x3 days and Pyridium 200 mg 3 times a day x3 days Written prescription given for Vicodin 5/325 mg every 6 hours as needed for pain Follow-up with Dr. Trevino in 1-2 weeks F (more content not included)... [facility] History of Present illness Narrative 06-18-2023 Note Date & Type Note Facility 06-18-2023 History of Presen t illness Narrative Patient is here for post-op f/u w/ kub. . S/P Right stent placement on 06/18. He has past hx of kidney stones. Chronic BPH sx are mild and stable. Denies urgency and frequency. Denies dysuria. Denies hematuria. Nocturia x1. No medication for LUT'S. PSA has been checked this year. This has always been normal. [facility] Work Phone: History and physical note 06-16-2023 Note Date & Type Note Facility 06-16-2023 Note History of Present I llness: HPI: This is REAL Salazar is a 67 year old Male with a past medical history of kidney stones, coronary artery disease status post CABG, post CABG PSVT, hyperlipidemia, and hypertension presented to [facility] as a direct admission from [facility] with complaints of right flank pain. Vital signs upon presentation were temp 98.8, heart rate 79, respiratory rate 18, blood pressure 161/101, and oxygen saturation 95% on room air. Labs done at [facility] were grossly within normal limits except for glucose 127, BUN 22, creatinine 1.82, and potassium 3.4. CT of the abdomen and pelvis without contrast was also done in [place] and showed 3 mm calculus in the midportion of the right ureter causing moderate degree of right hydronephrosis. Small nonobstructive bilateral intrarenal calculi, hepatic cyst, and prostatic enlargement with prostatic calcifications. Patient admitted to [place] surgical floor with a working diagnosis of right flank pain and right ureteral stone. Upon presentation, patient resting quietly in bed with no acute distress. is present at bedside and assist with history. states that right-sided flank pain radiating into pelvic area started early morning and continued to increase throughout the day. Patient complained of nausea without vomiting. Patient denies frequency or dysuria but did notice hematuria with tiny clots. Patient increase fluid intake throughout the day and noticed a decrease in the hematuria. Patient currently complains of right flank pain radiating into right groin area and rates an 8 out of 10. Describes pain as burning and constant. States does have relief with pain medication. Currently complaining of nausea. states that patient follows with urology in [place] and they were unavailable until next week. Patient and states they were instructed to come to [facility] for symptom management. Past medical history: kidney stones, coronary artery disease status post CABG, post CABG PSVT, hyperlipidemia, and hypertension Past surgical history: Inguinal hernia repair, lithotripsy, and status post CABG Social history: Denies tobacco use, alcohol use, or illicit drug use 10 point ROS negative except what is listed above Comorbidities: Comorbidites: Comorbid Conditionshypertension Social History: Social History: Smoking Statusnever smoker (1) Alcohol Usedenies(1) Drug Usedenies (1) Allergies: penicillin: Hives/Urticaria Medications Prior to Admission: potassium citrate 10 mEq oral tablet, extended release: 1 tab(s) orally 2 times a day pravastatin 80 mg oral tablet: 1 tab(s) orally once a day lisinopril-hydrochlorothiazide 20 mg-12.5 mg oral tablet: 1 tab(s) orally 2 times a day metoprolol tartrate 25 mg oral tablet: 1 tab(s) orally 2 times a day Hydrocort 2.5% topical cream: Apply topically to affected area once a day, As Needed aspirin 325 mg oral tablet: 1 tab(s) orally once a day Multiple Vitamins oral tablet: 1 tab(s) orally once a day. Objective: Objective Information: T PRBPMAPSpO2 [id number]% Date/Time06/16 16: 16: 16: 16: 16:15 Range(37.1C - 37.1C ) (79 - 79 ) (18 - 18 ) (161 - 161 )/ (101 - 101 ) (95% - 95% ) Highest temp of 37.1 C was recorded at 06/16 16: Pain reported at 06/16 17:40: 8 = Severe Physical Exam Narrative: Physical Exam: General Appearance: AAO x 3, not in acute distress Skin: skin pink, warm, and dry; no suspicious rashes or lesions Eyes : PERRL, EOM's intact ENT: Mucous membranes pink and moist Neck: normocephalic Respiratory: lungs clear to auscultation posteriorly; no wheezing, rhonchi, or crackles. On room air Heart: Regular rate and rhythm without murmur Abdomen: Nondistended, positive bowel sounds x4, soft, tenderness with palpation to right side Extremities: no edema to lower extremities Peripheral pulses: normal x4 extremities Neuro: alert, coherent and conversant, no focal motor deficits Medications: Medications: Continuous Medications 1. Sodium Chloride 0.9% Infusion: 1000 mL IntraVenous Scheduled Medications 1. Aspirin: 325 mg Oral Daily 2. Enoxaparin SubCutaneous: 40 mg SubCutaneous Every 24 Hours 3. hydroCHLOROthiazide: 12.5 mg Oral 2 Times a Day 4. Ketorolac Injectable: 15 mg IntraVenous Push Every 6 Hours 5. Lisinopril: 20 mg Oral 2 Times a Day 6. Metoprolol Tartrate: 25 mg Oral 2 Times a Day 7. Potassium Chloride Extended Release: 40 mEq Oral Once 8. Pravastatin: 80 mg Oral Daily 9. Tamsulosin: 0.4 mg Oral Daily PRN Medications 1. Acetaminophen: 650 mg Oral Every 4 Hours 2. Acetaminophen: 650 mg Oral Every 4 Hours 3. Magnesium Hydroxide -Al Hydrox -Simethicone Oral Liquid: 30 mL Oral Every 6 Hours (more content not included)... [facility] Evaluation note Note Date & Type Note Facility documented in this encounter [facility] Work Phone: Hospital Discharge instructions <item><item><item><item><item> Note Date & Type Note Facility Hospital Discharge instructions Activity:activity as tolerated. May shower.Additional Orders:Additional Instructions: Discharge:Discharge homeResume home medsE scribed to discount [facility] Cipro 500 mg every 12 hours x3 days and Pyridium 200 mg 3 times a day x3 daysWritten prescription given for Vicodin 5/325 mg every 6 hours as needed for painFollow-up with Dr. Trevino in 1-2 weeksFollow-up with PCP as neededThank you for allowing [facility] to precipitate in your care. Return the emergency room if symptoms worsenCall Provider If:Breathing faster than normal. Breathing harder than normal or having retractions. Fever of 100.4 F (38 C) or higher. Temperature is greater than 102 degrees. Chills. Drinking less than normal. Not being able to go 4-6 hours between albuterol treatments. Urinating less than normal, over 1 day. Urinating less than 4 times per day. Acting very sleepy and difficult to awaken. Vomiting (throwing up) and not able to eat or drink for 12 hours. 3 or more loose, watery bowel movements in 24 hours (diarrhea). Any new concerning symptoms.Follow Up Appointment 1:Physician/Dept/Service: Dr. Quiñonez for Referral: S/P stone removalCall to Schedule in: 2 weeksPhone Number: [phone]: Patient will have to call Monday and make a follow up appointmentFollow Up Appointment 2:Physician/Dept/Service: Marlon for Referral: as needed [facility] Chief Complaint post op f/u Family History No Family History Records FoundUnknown Family Member Name Dates Details No pertinent family history: Mother, Father(V49.89, Z78.9) Status:Active Advance Directives No Advanced Directives Records FoundLatest Code Status on File Code Status Date Activated Date Inactivated Comments Full Code 07/04/2023 10:01 AM 07/04/2023 4:00 PM Question Answer Comments Plan of Care: Code Status Discussion Completed Decision Maker: Patient Summary Purpose Additional Source Comments <item> Privacy Markings (unrecogniz ed section and content) Section Author: Cecelia Sandhu PROHIBITION ON REDISCLOSURE OF CONFIDENTIAL INFORMATION This notice accompanies a disclosure of information concerning a client made to you with the consent of such client. Scheduled Active and Recently Administ ered Medications (unrecognized section and content) Continuous Medication Order 07/02/2023 07/03/2023 07/04/2023 lactated Ringer's infusion 75 mL/hr, intravenous, Continuous, Starting on Mon07/04/23 at 1015, Preprocedure 1011 (New Bag - Prov ider: Shahnaz Burton RN)1146 (Continued by Anesthesia - Provider: Juan Saunders DO)1235 (Anesthesia Volume Adjustment - Provider: Juan Saunders DO)1555 (Due: Stopped) lactated Ringer's infusion 100 mL/hr, intravenous, Continuous, Starting on Mon07/04/23 at 1245, Recovery (only) 1245 (Canceled Entry - Provider: Automatic Discharge Provider - Comment: Automatically canceled at discontinue of medication order) PRN Medication Order 07/02/2023 07/03/2023 07/04/2023 HYDROmorphone (Dilaudid) injection 0.5 mg 0.5 mg, intravenous, Every 5 min PRN, pain moderate (4-6), first line, Starting on Mon07/04/23 at 1236, Recovery (only), Max total of 4 mg regardless of dose. HYDROmorphone (Dilaudid) injection 0.5 mg 0.5 mg, intravenous, Every 5 min PRN, pain severe (7-10), first line, Starting on Mon07/04/23 at 1236, Recovery (only), Max total of 4 mg regardless of dose. iohexol (OMNIPaque) 300 mg iodine/mL injection (CANCELED) As needed, Starting on Mon07/04/23 at 1216, Intraprocedure 1216 (Given - Provid er: Orlando Trevino MD - Comment: intraureteral right side) meperidine (PF) (Demerol) injection 12.5 mg 12.5 mg, intravenous, Every 10 min PRN, shivering, Starting on Mon07/04/23 at 1236, Recovery (only), IF administered IV, patient should be lying down during administration. IV push should be administered slowly using a diluted solution. ondansetron (Zofran) injection 4 mg 4 mg, intravenous, Once as needed, nausea/vomiting, second line, Starting on Mon07/04/23 at 1236, For 1 dose, Recovery (only), When administering via IV Push, administer over 3-5 minutes. oxyCODONE (Roxicodone) immediate release tablet 5 mg 5 mg, oral, Every 4 hours PRN, pain mild (1-3), first line, Starting on Mon07/04/23 at 1236, Recovery (only), When able to take oral medications., If ordered PRN for pain, nurse is permitted to administer this medication for higher pain scores based on patient preference? Yes oxygen (O2) therapy inhalation, Continuous PRN - O2/gases, other, Starting on Mon07/04/23 at 1236, Recovery (only), Device: Nasal Cannula, Rate in liters per minute: 3 LPM, Keep O2 Sat Above: 92% promethazine (Phenergan) 6.25 mg in sodium chloride 0.9% 50 mL IV 6.25 mg, intravenous, Administer over 15 Minutes, Once as needed, Nausea/vomiting first line, Starting on Mon07/04/23 at 1236, For 1 dose, Recovery (only) (unrecognized sect ion and content) No Status Records FoundNo Status Records FoundNo Status Records Found INFORMATION SOURCE (unrecogn ized section and content) DATE CREATED AUTHOR AUTHOR'S ORGANIZ ATION 07/06/2023 [facility], [place], operated by [facility] DATE CREATED AUTHOR AUTHOR'S ORGANIZ ATION 07/06/2023 [facility] FOR RECORDS PERTAINING TO PATIENTS WHO ARE OR HAVE BEEN ENROLLED IN A CHEMICAL DEPENDENCY/SUBSTANCEABUSE PROGRAM, SOME INFORMATION MAY BE OMITTED. This clinical summary was aggregated from multiple sources. Caution should be exercised in using it in the provision of clinical care. This summary normalizes information from multiple sources, and as a consequence, information in this document may materially change the coding, format and clinical context of patient data. In addition, data may be omitted in some cases. CLINICAL DECISIONS SHOULD BE BASED ON THE PRIMARY CLINICAL RECORDS. [facility]. provides no warranty or guarantee of the accuracy or completeness of information in this document.
--- NOTE | 2023-10-06 16:45 | STRESSREP_ITS ---
Stress Test Report Exercise myocardial perfusion stress test. 67-year-old man with a history of coronary disease Stress protocol: Resting EKG demonstrates normal sinus rhythm with a rate of 74 bpm resting blood pressure is 122/84 mmHg. The patient exercised according to the regular Frank protocol for a total duration of 6 minutes attaining a maximum heart rate of 133 bpm which was 88% of maximum predicted heart rate; the maximum workload was 7 metabolic equivalents. At rest there were no ST or T wave changes noted to suggest ischemia and at peak exercise upsloping ST changes only were noted which did not meet the criteria for ischemia. No clinical angina was noted the test was terminated due to the target heart rate being achieved/fatigue. The peak blood pressure was 164/78 mmHg. Rate-pressure product was 21,400. Myocardial perfusion protocol. 14.3 mCi of technetium 99m sestamibi was injected at rest. The patient exercised according to regular Frank protocol for total duration of 6 minutes and at peak exercise 44.7 mCi of technetium 99m sestamibi was injected stress images were obtained stress and rest images were reconstructed in comparing the short axis vertical long and horizontal long axis. Gated images were also obtained. Perfusion SPECT analysis: Review of the stress images demonstrate normal uptake of tracer noted in all ar eas of the myocardium. The resting images similarly demonstrate normal uptake of tracer noted in all areas of the myocardium. No areas of reversibility are noted to suggest ischemia no previous infarct was noted. Gated SPECT analysis: The gated ejection fraction is 64%. Conclusion: Normal exercise myocardial perfusion stress test at a moderate workload Preserved ejection fraction.
== END | disposition home or self-care (01) ==
LOC: CVS 06:39
PROVIDERS: Referring Provider Internal Medicine Cardiovascular Disease; Visit Provider Internal Medicine Cardiovascular Disease
DX: I47.10 Supraventricular tachycardia, unspecified (principal); I25.10 Atherosclerotic heart disease of native coronary artery without angina pectoris; Z95.1 Presence of aortocoronary bypass graft
CPT/HCPCS: 78452; 93017; 93306; A9500; Q9957; A4216; C8929

== ENCOUNTER → 2023-11-08 | Outpatient (CLI) | payer MEDICARE, BC, SELFPAY ==
[2023-11-08 15:19] LABS: PSA,Total - Annual Screen 2.06 ng/mL (0.00-4.00)
== END | disposition home or self-care (01) ==
LOC: BIMLAB 12:28
PROVIDERS: Visit Provider Urology
DX: N40.1 Benign prostatic hyperplasia with lower urinary tract symptoms (principal)
CPT/HCPCS: 36415; 84153; G0103

== ENCOUNTER → 2024-08-13 | Outpatient (CLI) | payer MEDICARE, BC, SELFPAY ==
[2024-08-13 13:08] LABS: AST(SGOT) 15 U/L (15-37); Alanine Aminotransfer ALT/SGPT 22 U/L (16-61); Albumin, Serum 3.7 g/dL (3.2-5.0); Alkaline Phosphatase 74 U/L (45-117); Cholesterol 187 mg/dL (200); Globulin 3.8 g/dL (2.2-4.2); High Density Lipoprotein 49 mg/dL; Protein, Total 7.5 g/dL (6.4-8.2); Triglycerides 198 mg/dL; Very Low Density Lipoprotein 40 mg/dL (5-40)
== END | disposition home or self-care (01) ==
LOC: BIMLAB 10:35
PROVIDERS: Nurse Practitioner Gerontology; PCP Family Medicine; Visit Provider Family Medicine
DX: E78.00 Pure hypercholesterolemia, unspecified (principal)
CPT/HCPCS: 36415; 80061; 80076

== ENCOUNTER → 2024-11-19 | Outpatient (CLI) | payer MEDICARE, BC, SELFPAY ==
[2024-11-19 13:58] LABS: AST(SGOT) 15 U/L (15-37); Alanine Aminotransfer ALT/SGPT 28 U/L (16-61); Albumin, Serum 3.5 g/dL (3.2-5.0); Alkaline Phosphatase 70 U/L (45-117); Bilirubin, Direct 0.13 mg/dL (0.00-0.30); Cholesterol 147 mg/dL (200); Globulin 3.8 g/dL (2.2-4.2); High Density Lipoprotein 49 mg/dL; Protein, Total 7.3 g/dL (6.4-8.2); Triglycerides 141 mg/dL; Very Low Density Lipoprotein 28 mg/dL (5-40)
[2024-11-19 14:34] LABS: PSA,Total- Diagnostic 2.38 ng/mL (0.0-4.0)
== END | disposition home or self-care (01) ==
LOC: BIMLAB 09:57
PROVIDERS: Referring Provider Nurse Practitioner Family; Visit Provider Nurse Practitioner Family
DX: R35.1 Nocturia (principal); E78.5 Hyperlipidemia, unspecified
CPT/HCPCS: 36415; 80061; 80076; 84153

== ENCOUNTER → 2025-06-19 | Outpatient (CLI) | payer MEDICARE, BC, SELFPAY ==
[2025-06-19 12:07] LABS: AST(SGOT) 20 U/L (<=37); Alanine Aminotransfer ALT/SGPT 15 U/L (<=46); Albumin, Serum 4.1 g/dL (3.4-4.8); Alkaline Phosphatase 61 U/L (40-129); Bilirubin, Direct 0.21 mg/dL (0.00-0.30); Cholesterol 172 mg/dL (<=200); Globulin 2.7 g/dL (2.2-4.2); Low Density Lipoprotein Calc. 92 mg/dL; Triglycerides 116 mg/dL; Very Low Density Lipoprotein 23 mg/dL (5-40); cholesterol:hdl ratio screen 3.05
== END | disposition home or self-care (01) ==
LOC: LAB 10:50
PROVIDERS: Referring Provider Nurse Practitioner Family; Visit Provider Nurse Practitioner Family
DX: E78.5 Hyperlipidemia, unspecified (principal)
CPT/HCPCS: 36415; 80061; 80076